=== PATIENT | male | born 1985 | race Caucasian/White ===

== ENCOUNTER 2024-11-05 00:35 | Emergency (ER) | payer SELFPAY ==
[2024-11-05 00:44] VITALS: BP 155/94; PULSE 100; RESP 18; TEMP 36.6; O2SAT 93; BMI 27.4
--- NOTE | 2024-11-05 01:00 | ECG_ITS ---
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
--- NOTE | 2024-11-05 01:00 | XRR_ITS ---
PROCEDURE INFORMATION: Exam: XR Chest Exam date and time: 11/05/2024 1:04 AM Age: 39 years old Clinical indication: Shortness of breath; Chest pressure; C/O chest pain with SOB. ; Additional info: Cp TECHNIQUE: Imaging protocol: Radiologic exam of the chest. Views: 1 view. COMPARISON: No relevant prior studies available. FINDINGS: Lungs: Unremarkable. No consolidation. Pleural spaces: Unremarkable. No pleural effusion. No pneumothorax. Heart/Mediastinum: Unremarkable. No cardiomegaly. Bones/joints: Unremarkable. XR/XR chest 1V portable [id number] IMPRESSION: No acute findings.
[2024-11-05 01:20] LABS: Basophils # 0.1 10^3/uL (0.0-0.1); Basophils % 0.5 %; Eosinophils # 0.1 10^3/uL (0.0-0.8); Eosinophils % 1.4 %; Hematocrit 47.3 % (37-53); Lymphocytes # 2.9 10^3/uL (0.8-4.8); Lymphocytes % 27.8 %; Mean Corpuscular HGB Conc 34.9 g/dL (30-55); Mean Corpuscular Hemoglobin 32.4 pg (27-33); Mean Corpuscular Volume 92.9 fl (82-101); Mean Platelet Volume 8.4 fL (7.4-10.4); Monocytes % 9.3 %; Neutrophils # 6.25 10^3/uL (1.8-7.7); Neutrophils % 60.7 %; Nucleated Red Blood Cells % 0 %; Platelet Count 275 10^3/cmm (157-399); Red Blood Count 5.09 10^6/uL (3.85-5.65); Red Cell Distribution Width 11.8 % (12.1-15.1); White Blood Count 10.27 10^3/uL (3.29-11.43)
[2024-11-05] MEDS: lidocaine 2% viscous 15 ML, aluminum-mag hydrox-simethicon 30 ML, sucralfate oral liq 1 GM PO (01:35)
[2024-11-05 01:36] LABS: Troponin(5th) Baseline 11 ng/L (0-15)
--- NOTE | 2024-11-05 01:41 | ED_ITS ---
HPI - Chest Pain 2 General: Chief Complaint: Chest Pain Stated Complaint: Sharp CP SoB Time Seen by Provider: 11/05/24 01:02 History of Present Illness: 39-year-old male patient with no prior h istory of coronary disease. He presents with epigastric and left-sided chest pain. This started after dinner last evening. He says it comes and goes in waves. He has not had this problem before. No history of abdominal surgery. No fever. No vomiting. He is nauseated. Related Data Previous Rx's ?Medication ?Instructions ?Recorded lansoprazole 30 mg capsule,delayed 30 mg PO DAILY #30 caps 11/05/24 release (Prevacid) Allergies Allergy/AdvReac Type Severity Reaction Status Date / Time No Known Allergies Allergy Verified 11/05/24 00:44 Physical Exam 2 Const: COMMON NORMALS: no acute distress GENERAL APPEARANCE: cooperative; not ill appearing and not frail appearing HENMT: COMMON NORMALS: normocephalic, atraumatic and Normal external nose present HEAD & SCALP: normocephalic and atraumatic FACE & SINUS: normal facial exam and face symmetric NOSE: Normal external nose present Eye: COMMON NORMALS: Equal, round and reactive pupils present and EOMs intact bilaterally PUPIL: Yes Equal, round and reactive pupils present Neck/C-Spine: GENERAL: Yes trachea midline Chest: CHEST: Yes Symmetrical chest wall rise Resp: COMMON NORMALS: normal respiratory effort, No retractions, No use of accessory muscles and clear to auscultation bilaterally AUSCULTATION: clear to auscultation bilaterally Cardio: COMMON NORMALS: regular rhythm RATE: bradycardic RHYTHM: regular rhythm GI: COMMON NORMALS: Normal to inspection, nondistended, normoactive bowel sounds present Extremity: COMMON NORMALS: no pedal edema Neuro: VINCENT COMA SCALE: document GCS findings [place] coma scale eye opening: Spontaneous [place] coma scale verbal response: Orientated [place] coma scale motor response: Obey commands [place] coma scale total score: 15 S ENSORY EXAM: Yes extremities (intact) Psych: COMMON NORMALS: speech normal SPEECH: Yes normal speech Skin: COMMON NORMALS: no rashes or lesions noted GENERAL SKIN EXAM: no rashes or lesions noted Course 2 Vital Signs: Vital signs: Vital Signs Temperature 97.8 F 11/05/24 00:44 Pulse Rate 87 11/05/24 04:10 Respiratory Rate 18 11/05/24 04:10 Blood Pressure 122/70 11/05/24 04:10 Pulse Oximetry 97 11/05/24 04:10 Oxygen Delivery Me thod Room Air 11/05/24 00:44 MDM - Chest Pain Medical Decision Making This patient's EKG shows a sinus tachycardia with a rate of 107, normal axis and intervals. No acute ST wave changes. His white blood cell count is 10. Hemoglobin is 16.5. Chest x-ray is nonacute. His troponin is 11 initially. He is given morphine, Zofran and a GI cocktail with some improvement. Patient's pain essentially resolved after GI cocktail, Zofran and morphine. No return of pain. Vitals are stable. He will be allowed discharge home. Lab Data 11/05/24 01:13 11/05/24 01:13 Radiology Impressions Chest X-Ray 11/05/24 01:00 IMPRESSION: No acute findings. Laboratory Results WBC 10.27 10^3/uL (3.29-11.43) 11/05/24 01:13 RBC 5.09 10^6/uL (3.85-5.65) 11/05/24 01:13 Hgb 16.50 g/dL (11.27-16.99) 11/05/24 01:13 Hct 47.3 % (37-53) 11/05/24 01:13 MCV 92.9 fl (82-101) 11/05/24 01:13 MCH 32.4 pg (27-33) 11/05/24 01:13 MCHC 34.9 g/dL (30-55) 11/05/24 01:13 RDW 11.8 % (12.1-15.1) L 11/05/24 01:13 Plt Count 275 10^3/cmm (157-399) 11/05/24 01:13 MPV 8.4 fL (7.4-10.4) 11/05/24 01:13 Neut % (Auto) 60.7 % 11/05/24 01:13 Lymph % (Auto) 27.8 % 11/05/24 01:13 [place] % (Auto) 9.3 % 11/05/24 01:13 Eos % (Auto) 1.4 % 11/05/24 01:13 Baso % (Auto) 0.5 % 11/05/24 01:13 Neut # (Auto) 6.25 10^3/uL (1.8-7.7) 11/05/24 01:13 Lymph # (Auto) 2.9 10^3/uL (0.8-4.8) 11/05/24 01:13 [place] # (Auto) 1.0 10^3/uL (0.2-0.9) H 11/05/24 01:13 Eos # (Auto) 0.1 10^3/uL (0.0-0.8) 11/05/24 01:13 Baso # (Auto) 0.1 10^3/uL (0.0-0.1) 11/05/24 01:13 Nucleated RBC % (auto) 0 % 11/05/24 01:13 Nucleated RBCs # 0.0 /100WBC 11/05/24 01:13 Sodium 140 mmol/L (136-145) 11/05/24 01:13 Potassium 3.9 mmol/L (3.5-5.1) 11/05/24 01:13 Chloride 100 mmol/L (98-107) 11/05/24 01:13 Carbon Dioxide 22 mmol/L (22-29) 11/05/24 01:13 Anion Gap 21.9 (5-19) H 11/05/24 01:13 BUN 11 mg/dL (6-20) 11/05/24 01:13 Creatinine 0.8 mg/dL (0.7-1.2) 11/05/24 01:13 GFR Calculation 107.6 mL/min (90-130) 11/05/24 01:13 Glucose 103 mg/dL (65-115) 11/05/24 01:13 Calculated Osmolality 290 mOsm/kg (285-295) 11/05/24 01:13 Calcium 9.0 mg/dL (8.5-10.5) 11/05/24 01:13 Total Bilirubin 0.2 mg/dL (0.15-1.2) 11/05/24 01:13 Direct Bilirubin 0.20 mg/dL (0.00-0.30) 11/05/24 01:13 AST 106 U/L (0-40) H 11/05/24 01:13 ALT 131 U/L (0-41) H 11/05/24 01:13 Alkaline Phosphatase 53 U/L (40-130) 11/05/24 01:13 Troponin T Baseline 11 ng/L (0-15) 11/05/24 01:13 Troponin T 120 Minute 8.87 ng/L (0-15) 11/05/24 03:35 Delta Troponin T -2.13 ABS# (0-10) L 11/05/24 03:35 Total Protein 7.6 g/dL (6.6-8.7) 11/05/24 01:13 Albumin 4.7 g/dL (3.5-5.2) 11/05/24 01:13 Globulin 2.9 g/dL (1.3-4.6) 11/05/24 01:13 Lipase 60 U/L (13-60) 11/05/24 01:13 Coronavirus (PCR) Negative (Negative) 11/05/24 01:13 Influenza A (PCR) Negative (Negative) 11/05/24 01:13 Influenza Type B (PCR) Negative (Negative) 11/05/24 01:13 RSV (PCR) Negative (Negative) 11/05/24 01:13 All radiology interpretation(s) finalized by discharge Discharge Plan Discharge Patient Disposition: Home Clinical Impression: Atypical chest pain, Esophageal spasm Condition: Stable Prescriptions: New lansoprazole [Prevacid] 30 mg capsule,delayed release(DR/EC) 30 mg PO DAILY Qty: 30 0RF Discharge Orders: Discharge ED (Routine); Ordered 11/05/24 Ordered By: Jose M Cornelius Patient Instructions: Chest Pain (ED), Esophageal Spasm (ED), Opioid Safety, Pain Management Activity Restrictions/Additional Instructions: Medication as directed. Return for any problems. Call your doctor Wednesday morning for follow-up appointment. Further outpatient testing may be needed. Print Language: Urdu Coding Level of Care Code ED Capacity Planning Analyst for Amy Garcia
[2024-11-05 01:42] LABS: Anion Gap 21.9 (5-19); Blood Urea Nitrogen 11 mg/dL (6-20); Carbon Dioxide 22 mmol/L (22-29); Chloride 100 mmol/L (98-107); Creatinine Clr Calc Pharmacy 113.1866; Glomerular Filtration Rate 107.6 mL/min (90-130); Glucose 103 mg/dL (65-115); Osmolality Calculated 290 mOsm/kg (285-295); Potassium 3.9 mmol/L (3.5-5.1); Sodium 140 mmol/L (136-145)
[2024-11-05] MEDS: morphine 4 mg/mL SDV 1 mL IVP (01:59)
[2024-11-05] MEDS: ondansetron 2 mg/ML SDV 2 mL 4 MG IVP (01:59)
[2024-11-05 02:03] VITALS: BP 122/74; PULSE 94; RESP 18; O2SAT 96
[2024-11-05 02:08] LABS: Covid PCR NEGATIVE (Negative); Influenza A NEGATIVE (Negative); Influenza B NEGATIVE (Negative); Respiratory Syncytial Virus Ce NEGATIVE (Negative)
[2024-11-05 02:54] LABS: Alanine Aminotransferase 131 U/L (0-41); Albumin Level 4.7 g/dL (3.5-5.2); Alkaline Phosphatase 53 U/L (40-130); Aspartate Amino Transferase 106 U/L (0-40); Globulin 2.9 g/dL (1.3-4.6); Lipase 60 U/L (13-60); Total Bilirubin 0.2 mg/dL (0.15-1.2); Total Protein 7.6 g/dL (6.6-8.7)
[2024-11-05 04:10] VITALS: BP 122/70; PULSE 87; RESP 18; O2SAT 97
[2024-11-05 04:18] LABS: Troponin 5 2HR 8.87 ng/L (0-15)
[2024-11-05 04:21] LABS: Troponin 5 2HR Delta -2.13 ABS# (0-10)
== END 2024-11-05 04:10 | disposition home or self-care (01) ==
PROVIDERS: Emergency Provider Emergency Medicine
DX: R07.89 Other chest pain (principal); K22.4 Dyskinesia of esophagus; Z11.52 Encounter for screening for COVID-19
CPT/HCPCS: 36415; 71045; 80048; 80076; 83690; 84484; 85025; 87637; 93005; 96374; 96375; 99285; J2270; J2405